=== PATIENT | female | born 1940 | race Caucasian/White ===

== ENCOUNTER 2021-02-16 19:49 | Emergency (ER) | payer OTHER, MEDICARE ==
[~2021-02-16] VITALS: Ht 157.5 cm; Wt 52.2 kg
[2021-02-16] MEDS ORDERED: BACITRACIN ZINC 0.9GM TP ONE ×2 (20:00→20:03)
== END 2021-02-16 20:24 | disposition home or self-care (01) ==
LOC: ER 19:54
DX: S61.552A Open bite of left wrist, initial encounter (principal); W54.0XXA Bitten by dog, initial encounter; Y92.008 Other place in unspecified non-institutional (private) residence as the place of occurrence of the external cause; I10 Essential (primary) hypertension; J44.9 Chronic obstructive pulmonary disease, unspecified; F17.210 Nicotine dependence, cigarettes, uncomplicated
CPT/HCPCS: 99282

== ENCOUNTER 2024-08-12 17:55 | Emergency (ER) | payer MEDICARE ==
[~2024-08-12] VITALS: Ht 157.5 cm; Wt 37.2 kg
[2024-08-12 18:15] VITALS: PULSE 81; RESP 16; TEMP 98.1; O2SAT 98
== END 2024-08-12 18:53 | disposition home or self-care (01) ==
LOC: ER 18:03
DX: R10.33 Periumbilical pain (principal); I10 Essential (primary) hypertension; X50.1XXA Overexertion from prolonged static or awkward postures, initial encounter; Y92.89 Other specified places as the place of occurrence of the external cause; J44.9 Chronic obstructive pulmonary disease, unspecified; F17.210 Nicotine dependence, cigarettes, uncomplicated
CPT/HCPCS: 99282